=== PATIENT | male | born 1960 | race Caucasian/White ===

== ENCOUNTER 2017-10-14 07:29 | Emergency (ER) | payer MEDICAID ==
[~2017-10-14] VITALS: Ht 177.8 cm; Wt 99.8 kg
[~2017-10-14 07:29] MED LIST: ASPI325; CEPH500 PO; OXYACE5T PO
[2017-10-14 07:40] LABS: Calcium, Ionized (POC) 1.01 mmol/L (1.10-1.46); Chloride (POC) 99 mmol/L (98-108); Creatinine (POC) 1.3 mg/dL (0.8-1.3); Glucose (ISTAT POC) 301 mg/dL (70-99); Hemoglobin (POC) 13.3 g/dL (13.5-17.5); Sodium (POC) 138 mmol/L (135-148); Total CO2 (POC) 20 mmol/L (21-32)
== END 2017-10-14 08:10 | disposition short-term general hospital (02) ==
LOC: ER 07:29
PROVIDERS: Emergency Medicine
DX: S71.132A Puncture wound without foreign body, left thigh, initial encounter (principal); S71.131A Puncture wound without foreign body, right thigh, initial encounter; W32.0XXA Accidental handgun discharge, initial encounter
CPT/HCPCS: 36430; 74018; 80047; 85014; 86850; 86900; 86901; 86923; 96374; 96375; 99285; J2405; J3010; J7030; P9016; P9037; P9059

== ENCOUNTER → 2021-06-07 | Outpatient (CLI) | payer OTHER | END | disposition home or self-care (01) | LOC: LAB SHORT 10:01 | DX: J02.9 Acute pharyngitis, unspecified (principal) | CPT/HCPCS: 87081 ==